=== PATIENT | female | born 1990 | race Hispanic/Latino ===

== ENCOUNTER → 2022-12-20 | Day surgery (SDC) | payer OTHER ==
[~2022-12-20] MED LIST: HYOSCYAMINE SULFATE 0.5 MG/ML INJ ONE; KETAMINE HCL INJ 50 MG/ML 10 ML VIAL ONE; LACTATED RINGER'S 1,000 ML BAG IV ONE; MAGNESIUM PO; METRONIDAZOLE500 MG PO; MIDAZOLAM HCL 2 MG/2 ML VIAL ONE; MULTIVITAMINS1 EAC4 PO; PROPOFOL IV EMULSION 10 MG/ML 20 ML VIAL ONE; QSYMIA 3.75 MG1 EACH PO; SUMATRIPTAN SUC50 MG PO; VENLAFAXINE HCL75 M2 PO; VITAMIN B-121000 MC1 PO; VITAMIN C500 MG PO; VITAMIN D3125 MCG/1 PO; [UNRECOGNIZED DRUG - OTHER] INJ
[2022-12-20 08:19] VITALS: TEMP 99.6
[2022-12-20 08:50] VITALS: BP 102/70; PULSE 79; RESP 16; O2SAT 99
== END | disposition home or self-care (01) ==
LOC: OR 06:20
PROVIDERS: ATTEND Internal Medicine Gastroenterology
DX: K58.1 Irritable bowel syndrome with constipation (principal); G43.909 Migraine, unspecified, not intractable, without status migrainosus; F41.9 Anxiety disorder, unspecified; F32.A Depression, unspecified; Z79.899 Other long term (current) drug therapy
CPT/HCPCS: 36415; 45378; 81025; 84443; J1980; J2250; J2704; J7121